=== PATIENT | female | born 1975 | race Caucasian/White ===

== ENCOUNTER → 2017-03-08 | Outpatient (CLI) | payer BC ==
[~2017-03-08] MED LIST: NAPR220C4 PO; RANI150T6 PO
[2017-03-08 16:32] LABS: PROTHROMBIN TIME PATIENT 12.8 SEC (11.7-14.0)
== END | disposition home or self-care (01) ==
LOC: SURGPAT 15:04
PROVIDERS: ATTEND Neurological Surgery
DX: Z01.818 Encounter for other preprocedural examination (principal); M51.36 Other intervertebral disc degeneration, lumbar region
CPT/HCPCS: 36415; 85610; 85730; 87641

== ENCOUNTER → 2017-03-16 | Day surgery (SDC) | payer BC ==
[~2017-03-16] VITALS: Ht 167.6 cm; Wt 90.7 kg
[~2017-03-16] MED LIST changes: +BACITRACIN 50,000 UNIT in IV NORMAL SALINE 1000ML BAG 1,000 ML IRR ONE; +BUPIVACAINE 0.5% 50 ML VIAL. ONE; +DESFLURANE > 120 MINUTES IH ONE; +DEXAMETHASONE SOD PHOS 20 MG/5 ML VIAL. ONE; +GELATIN SPONGE SIZE 100. ONE; +GLYCOPYRROLATE 1 MG/5 ML VIAL. ONE; +HYDROmorphone 2 MG/ML VIAL IV PRN; +IV RINGERS,LACTATED 1000ML 1,000 ML IV SCH; +LIDOCAINE 1% PF 2 ML VIAL. ID PRN; +LIDOCAINE 1%/EPI 1:100,000 20 ML VIAL. ONE; +LIDOCAINE 2% PF Vial for OR 5 ML VIAL. ONE; +MIDAZOLAM HCL/PF 2 MG/2 ML VIAL. ONE; +MORPHINE SULFATE 2 MG/ML DISP.SYRIN. IV PRN; +NEOSTIGMINE METHYLSULFATE 5 MG/5 ML SYRINGE. ONE; +ONDANSETRON PF 4 MG/2 ML VIAL. IV PRN; +ONDANSETRON PF 4 MG/2 ML VIAL. ONE; +PHENYLEPHRINE 10 MG/ML VIAL. ONE; +PROCHLORPERAZINE 10 MG/2 ML VIAL. IV PRN; +PROPOFOL 20 ML IV ONE; +PROPOFOL 50 ML IV ONE; +REMIFENTANIL 2 MG VIAL. IV ONE; +ROCURONIUM 50 MG/5 ML VIAL. ONE; +THROMBIN TOPICAL 20,000 UNIT SPRAY.SYRN KIT TP ONE; +ceFAZolin 2GM PREMIX 2 GM/50 ML BAG IV ONE; +fentaNYL PF VIAL 100 MCG/2 ML VIAL IV PRN; +fentaNYL PF VIAL 100 MCG/2 ML VIAL ONE
[2017-03-16 07:42] LABS: NEG OBC UR NEG; POS OBC UR POS
[2017-03-16 07:49] VITALS: BP 126/82
== END ==
LOC: SURG 07:11
PROVIDERS: ATTEND Neurological Surgery
DX: M51.27 Other intervertebral disc displacement, lumbosacral region (principal); Z53.8 Procedure and treatment not carried out for other reasons; F17.200 Nicotine dependence, unspecified, uncomplicated
CPT/HCPCS: 81025; J2704; J3010; J3490; J7030; J0690; J1100; J2250; J2405; J2710; J2001

== ENCOUNTER → 2017-03-17 | Outpatient (CLI) | payer BC ==
[2017-03-16 07:49] VITALS: BP 126/82
[~2017-03-17] MED LIST changes: -BACITRACIN 50,000 UNIT in IV NORMAL SALINE 1000ML BAG 1,000 ML IRR ONE; -BUPIVACAINE 0.5% 50 ML VIAL. ONE; -DESFLURANE > 120 MINUTES IH ONE; -DEXAMETHASONE SOD PHOS 20 MG/5 ML VIAL. ONE; -GELATIN SPONGE SIZE 100. ONE; -GLYCOPYRROLATE 1 MG/5 ML VIAL. ONE; -HYDROmorphone 2 MG/ML VIAL IV PRN; -IV RINGERS,LACTATED 1000ML 1,000 ML IV SCH; -LIDOCAINE 1% PF 2 ML VIAL. ID PRN; -LIDOCAINE 1%/EPI 1:100,000 20 ML VIAL. ONE; -LIDOCAINE 2% PF Vial for OR 5 ML VIAL. ONE; -MIDAZOLAM HCL/PF 2 MG/2 ML VIAL. ONE; -MORPHINE SULFATE 2 MG/ML DISP.SYRIN. IV PRN; -NEOSTIGMINE METHYLSULFATE 5 MG/5 ML SYRINGE. ONE; -ONDANSETRON PF 4 MG/2 ML VIAL. IV PRN; -ONDANSETRON PF 4 MG/2 ML VIAL. ONE; -PHENYLEPHRINE 10 MG/ML VIAL. ONE; -PROCHLORPERAZINE 10 MG/2 ML VIAL. IV PRN; -PROPOFOL 20 ML IV ONE; -PROPOFOL 50 ML IV ONE; -REMIFENTANIL 2 MG VIAL. IV ONE; -ROCURONIUM 50 MG/5 ML VIAL. ONE; -THROMBIN TOPICAL 20,000 UNIT SPRAY.SYRN KIT TP ONE; -ceFAZolin 2GM PREMIX 2 GM/50 ML BAG IV ONE; -fentaNYL PF VIAL 100 MCG/2 ML VIAL IV PRN; -fentaNYL PF VIAL 100 MCG/2 ML VIAL ONE
--- NOTE | 2017-03-17 10:24 | RAD ---
MRI Lumbar Spine without contrast History: Bilateral leg radiculopathy Technique: Multiplanar, multi sequential noncontrast MR imaging was performed of the lumbar spine. Contrast: None Comparison: None Findings: Lumbar vertebral body stature is preserved. There is negligible anterior spondylolisthesis L4-5. There is moderate to severe degenerative disc disease at L4-5, to a somewhat lesser degree at L5-S1, and mild disc desiccation L3-4. There is vacuum disc disease at L4-5 and L5-S1. Conus terminates at T12-L1. There is L4-5 and minimal left L5-S1 endplate edema likely reactive/degenerative in etiology, no fluid in the intervertebral disc spaces. There are some tiny foci of marrow signal change of the L1 vertebral body, small hemangiomas favored. L2-L3: Spinal canal and neural foramina are adequate. L3-L4: There is mild buckling of the ligamentum flavum. There is negligible posterior bulge. The neural foramina are adequate. There is very mild narrowing of the far lateral recesses bilaterally. L4-L5: There is a posterior bulge/broad protrusion. There is minimal facet degenerative change on the right. There is very mild buckling of the ligamentum flavum. There is vxlh-fd-doykgkcc narrowing of the lateral recesses bilaterally, central canal adequate. There is dags-dg-xpmdpcho narrowing of the right neural foramen greater distally, protrusion also contacting the extraforaminal right L4 nerve root. Left neural foramen is adequate. L5-S1: There is shallow posterior mostly central protrusion, near the descending S1 nerve roots greater on the left without significant displacement. Spinal canal is overall adequate. There is mild narrowing of the left neural foramen, right neural foramen adequate. Impression: 1. There is moderate to severe degenerative disc disease at L4-5 and to a somewhat lesser degree at L5-S1, minimally at L3-4. L4-5 and L5-S1 endplate edema is likely reactive/degenerative in etiology. 2. There is lwsy-at-zffmcykh narrowing of the right L4-5 neural foramen greater distally, protrusion also contacting the proximal extraforaminal right L4 nerve root. 3. There is mild to moderate lateral recess stenosis bilaterally at L4-5, very mild narrowing of the far lateral recesses bilaterally at L3-4. Shallow protrusion at L5-S1 is near the descending S1 nerve roots greater on the left without significant impingement. 4. There is negligible anterior spondylolisthesis at L4-5. Electronically signed by: Dean Hobson MD (03/17/2017 10:20 AM) [facility]
== END | disposition home or self-care (01) ==
LOC: MRI 08:45
PROVIDERS: ATTEND Neurological Surgery
DX: M51.16 Intervertebral disc disorders with radiculopathy, lumbar region (principal); M43.16 Spondylolisthesis, lumbar region; M48.061 Spinal stenosis, lumbar region without neurogenic claudication; M51.27 Other intervertebral disc displacement, lumbosacral region
CPT/HCPCS: 72148

== ENCOUNTER → 2017-04-16 | Outpatient (CLI) | payer BC | END | disposition home or self-care (01) | LOC: PNCL 08:34 | DX: M48.061 Spinal stenosis, lumbar region without neurogenic claudication (principal); K21.9 Gastro-esophageal reflux disease without esophagitis; M79.604 Pain in right leg; M51.16 Intervertebral disc disorders with radiculopathy, lumbar region; R53.83 Other fatigue; F17.210 Nicotine dependence, cigarettes, uncomplicated; Z80.3 Family history of malignant neoplasm of breast | CPT/HCPCS: 99214 ==

== ENCOUNTER → 2017-04-30 | Outpatient (CLI) | payer BC ==
[~2017-04-30] MED LIST changes: +IOHEXOL 180 MG/ML 10 ML VIAL.; -NAPR220C4 PO; -RANI150T6 PO; +methylPREDNISolone ACETATE 40 MG/ML VIAL.; +methylPREDNISolone ACETATE 80 MG/ML VIAL.
== END | disposition home or self-care (01) ==
LOC: PNCL 08:12
DX: M51.16 Intervertebral disc disorders with radiculopathy, lumbar region (principal); F17.200 Nicotine dependence, unspecified, uncomplicated; Z72.89 Other problems related to lifestyle; Z86.69 Personal history of other diseases of the nervous system and sense organs; Z87.39 Personal history of other diseases of the musculoskeletal system and connective tissue; Z72.0 Tobacco use
CPT/HCPCS: 62323; J1030; J1040; Q9965

== ENCOUNTER → 2017-05-14 | Outpatient (CLI) | payer BC | END | disposition home or self-care (01) | LOC: PNCL 08:25 | DX: M51.16 Intervertebral disc disorders with radiculopathy, lumbar region (principal) | CPT/HCPCS: 99212 ==

== ENCOUNTER → 2017-09-10 | Outpatient (CLI) | payer BC | END | disposition home or self-care (01) | LOC: KCIC MAMMO 09:22 | DX: Z12.31 Encounter for screening mammogram for malignant neoplasm of breast (principal) | CPT/HCPCS: 77063; 77067 ==

== ENCOUNTER → 2017-09-15 | Outpatient (CLI) | payer BC | END | disposition home or self-care (01) | LOC: KCIC US 13:44 | DX: R92.8 Other abnormal and inconclusive findings on diagnostic imaging of breast (principal) | CPT/HCPCS: 76641 ==

== ENCOUNTER → 2018-09-27 | Outpatient (CLI) | payer BC ==
[2017-03-16 07:49] VITALS: BP 126/82
[~2018-09-27] MED LIST changes: +HYDR-2761 PO; -IOHEXOL 180 MG/ML 10 ML VIAL.; +NAPR220C4 PO; +RANI-376 PO; -methylPREDNISolone ACETATE 40 MG/ML VIAL.; -methylPREDNISolone ACETATE 80 MG/ML VIAL.
--- NOTE | 2018-09-27 16:22 | KCIC ---
Bilateral diagnostic digital mammograms with 3-D tomosynthesis: Reason for examination: Follow-up nodule seen on previous ultrasound examination. Comparison is made to previous study dated 09/10/2017. Bilateral mammograms in CC and oblique projections were obtained with 2-D imaging and 3-D tomosynthesis imaging on a Siemens Inspiration unit and reviewed on the workstation. Interpretation was made with the benefit of CAD. The skin and nipples show no abnormalities. No abnormal axillary lymph nodes are seen. The breast parenchyma shows scattered fatty and fibroglandular density. (Breast density: Category B.) There continues to be a small nodular parenchymal density at the 2:00 B position of the left breast. There is also some patchy asymmetric parenchyma medially in the left breast which with coned compression probably represents some superimposition of tissues. There are no other new dominant masses, suspicious calcifications or architectural distortion. Impression: No significant change in the small nodular density at the 2:00 B position. New asymmetric parenchyma in the medial left breast on CC view. Ultrasound to follow. BI-RADS Category 0: Incomplete. Needs additional imaging evaluation Left breast ultrasound: Comparison is made to previous study dated 09/15/2017. Ultrasound examination was performed in the air previous concern and in the lower inner quadrant in the area of new parenchymal asymmetry. The left axilla was also evaluated. At the 2:00 position 7 cm from the nipple, there continues to be a small 5 mm hypoechoic circumscribed lesion which is slightly small than on previous exam consistent with focal fibrocystic change. In the 7:00 position, there is a prominent vascular structure. No other cystic or solid lesions are seen. No abnormal appearing lymph nodes are seen in the left axilla. IMPRESSION: 5 mm nodule at the 2:00 position which is smaller than on previous exam and consistent with a small focus of fibrocystic change. No other focal abnormality seen in the left breast. Recommend routine mammographic follow-up. BI-RADS Category 2: Benign. "Our facility is accredited by the [employer] Mammography Program." This patient's information has been entered into a reminder system for the patient to be notified with the results of her examination and a target date for the next mammogram. Electronically signed by: Kerry Lock MD (09/27/2018 4:19 PM) [email or web address]
== END | disposition home or self-care (01) ==
LOC: KCIC MAMMO 12:52
PROVIDERS: ATTEND Nurse Practitioner
DX: N63.21 Unspecified lump in the left breast, upper outer quadrant (principal)
CPT/HCPCS: 76641; 77066; G0279; 77062

== ENCOUNTER → 2021-07-18 | Outpatient (CLI) | payer BC ==
[2017-03-16 07:49] VITALS: BP 126/82
--- NOTE | 2021-07-18 10:45 | KCIC ---
INDICATION: 46 years of age asymptomatic female patient presents for screening mammography. Family hi story of breast cancer in grandmother age 65. TECHNIQUE: Full field craniocaudal and mediolateral oblique images of both breasts were obtained usi ng digital technique with tomosynthesis and also analyzed with computer-aided detection software. COMPARISON: Prior mammographic imaging dating back to . BREAST COMPOSITION: Category C: The breast tissue is heterogeneously dense, which could obscure detec tion of small masses. FINDINGS: Right breast: Focal asymmetry in the upper outer quadrant, posterior depth, this appears more as a gl obal asymmetry on the MLO projection. Additional focal asymmetry in the subareolar location, anterior middle depth. No suspicious architectural distortion or suspicious calcifications. No focal dermal t hickening. No apparent nipple inversion. Left breast: Focal asymmetry in the lower inner quadrant, anterior middle depth. Asymmetry along the posterior nipple line, posterior depth appreciated on the MLO projection. No suspicious architectural distortion or suspicious calcifications. No focal dermal thickening or nipple inversion The visualized axillae are unremarkable. IMPRESSION: New indeterminate bilateral asymmetries/focal asymmetries. Advise clinical correlation fo r recent weight loss or possible hormone therapy. Additional clinical evaluation for any recent steward e in the appearance of either breast. RECOMMENDATION: Recommend additional evaluation with bilateral diagnostic mammograms with spot compre ssion. Additional evaluation with targeted ultrasound may also be considered, if indicated. BIRADS 0: INCOMPLETE - NEED ADDITIONAL IMAGING EVALUATION AND/OR PRIOR MAMMOGRAMS FOR COMPARISON. This study was interpreted with the benefit of Computerized Aided Detection (CAD). ?Your patient's mammogram demonstrates that she has dense breast tissue (breast density category C or D), which could hide abnormalities, and if she has other risk factors for breast cancer that have be en identified, she might benefit from supplemental screening tests that may be suggested by you as he r ordering physician. Dense breast tissue, in and of itself, is a relatively common condition. Theref ore, this information is not provided to cause undue concern, but rather to raise your awareness and to promote discussion with your patient regarding the presence of other risk factors, in addition to dense breast tissue. Your patient's mammography results will be sent to her. Patient information is entered into the reminder system with a target due date for the next screening mammogram. Mammography is the most sensitive method for finding small breast cancers, but it does not detect the m all and is not a substitute for careful clinical examination. A negative mammogram does not negate a clinically suspicious finding and should not result in delay in biopsying a clinically suspicious a bnormality. "Our facility is accredited by the [employer] Mammography [employer]." Electronically signed by: Alexis Lal DO (07/18/2021 10:42 AM) [id number]
== END ==
LOC: KCIC MAMMO 09:04
PROVIDERS: ATTEND Family Medicine
DX: Z12.31 Encounter for screening mammogram for malignant neoplasm of breast (principal)
CPT/HCPCS: 77063; 77067

== ENCOUNTER → 2021-07-31 | Outpatient (CLI) | payer BC ==
[2017-03-16 07:49] VITALS: BP 126/82
--- NOTE | 2021-07-31 15:31 | RAD ---
DATE: 07/31/2021 EXAM: US BREAST LT, MG DIGITAL BILAT DIAGNOSTIC MAMMO WITH SHERMAN HISTORY: Recalled from screening mammogram for multiple asymmetries and focal asymmetries bilaterally . The patient reports an approximately 45 pound weight loss over the past year. COMPARISON: 07/18/2021 and 09/27/2018 Breast Density: HETERO The breast parenchyma is heterogenously dense, which could reduce sensitivity of mammography. Breast parenchyma level C. FINDINGS: Multiple spot compression views of both breasts were obtained. The asymmetries seen on 07/18 change configuration with spot compression, consistent with superimposed fibroglandular tissue. There is one possible persistent asymmetry in the left breast around 2-3 or 9-10, posterior depth. Ultrasound of the left breast was performed in the area of questionable asymmetry at 2-3 and 9-10. Th ere is some dense tissue seen but no mass or cyst. There are a few prominent ducts in the retroareola r region. No suspicious lymph nodes in the left axilla. IMPRESSION: No evidence of malignancy. The patient reports an approximately 45 pound weight loss over the past year, which may be the cause of increased breast density and nodular fibroglandular tissue bilaterally. Recommend annual screening mammogram in one year. BI-RADS CATEGORY: 1 NEGATIVE RECOMMENDED FOLLOW-UP: 12M 12 MONTH FOLLOW-UP PQRS compliance statement: Patient information was entered into a reminder system with a target due d ate for the next mammogram. Mammography is a sensitive method for finding small breast cancers, but it does not detect them all a nd is not a substitute for careful clinical examination. A negative mammogram does not negate a clin ically suspicious finding and should not result in delay in biopsying a clinically suspicious abnorma lity. "Our facility is accredited by the [employer] Mammography [employer]." Electronically signed by: Magdalena De MD (07/31/2021 3:29 PM) [id number]
== END ==
LOC: MAMMO 12:51
PROVIDERS: ATTEND Family Medicine
DX: N64.89 Other specified disorders of breast (principal)
CPT/HCPCS: 76641; 77066; G0279; 77062